=== PATIENT | female | born 1950 | race Native Hawaiian/Other Pacific Islander ===

== ENCOUNTER 2016-10-06 16:10 | Emergency (ER) | payer OTHER ==
--- NOTE | 2016-10-06 16:53 | ER Document Report ---
ED Medical Screen (RME) - General Chief Complaint: Passed Out Prior to Arrival Stated Complaint: FAINTED IN SHOWER Time Seen by Provider: 10/06/16 16:44 Notes: 66-year-old female patient who gets Procrit shots for thalassemia comes emergency room after a syncopal episode in the shower. She reported having a slow heart rate earlier today and thought she should take a shower before another bad storm came through. She reports a sharp pain in her chest before she fell. She has had the slow heart rates in the past but has never been this bad. She does not take any regular medications. I have greeted and performed a rapid initial assessment of this patient. A comprehensive ED assessment and evaluation of the patient, analysis of test results and completion of the medical decision making process will be conducted by additional ED providers. TRAVEL OUTSIDE OF THE [place] IN LAST 30 DAYS: No - Related Data Allergies/Adverse Reactions: No Known Allergies Allergy (Verified 10/06/16 16:45) Past Medical History Renal/ Medical History: Denies: Hx Peritoneal Dialysis Physical Exam - Vital signs Vitals: Temp Pulse Resp BP Pulse Ox 99.0 F 73 20 153/70 H 97 10/06/16 16:22 10/06/16 16:22 10/06/16 16:22 10/06/16 16:22 10/06/16 16:22 Course - Vital Signs Vital signs: Temp Pulse Resp BP Pulse Ox 99.0 F 73 20 153/70 H 97 10/06/16 16:22 10/06/16 16:22 10/06/16 16:22 10/06/16 16:22 10/06/16 16:22
--- NOTE | 2016-10-06 17:02 | EKG REPORT ---
SEVERITY:- NORMAL ECG - SINUS RHYTHM : Confirmed by: Kenyatta Crews MD 06-Oct-2016 17:01:51
--- NOTE | 2016-10-06 17:44 | RADIOLOGY REPORT (SQ) ---
EXAM DESCRIPTION: CHEST SINGLE VIEW COMPLETED DATE/TIME: 10/06/2016 5:24 pm REASON FOR STUDY: syncope COMPARISON: None. EXAM PARAMETERS: NUMBER OF VIEWS: One view. TECHNIQUE: Single frontal radiographic view of the chest acquired. RADIATION DOSE: NA LIMITATIONS: None. FINDINGS: LUNGS AND PLEURA: There is minimal linear atelectasis in the left base. Lung fernandez are o therwise clear. No effusions. MEDIASTINUM AND HILAR STRUCTURES: No masses. Contour normal. HEART AND VASCULAR STRUCTURES: Heart normal in size. Normal vasculature. BONES: No acute findings. HARDWARE: None in the chest. OTHER: No other significant finding. IMPRESSION: Minimal atelectasis in the left base. TECHNICAL DOCUMENTATION: JOB ID: [id number]
[2016-10-06 18:23] LABS: HEMATOCRIT 40.1 % (36.0-47.0); HEMOGLOBIN 11.2 g/dL (12.0-15.5); MEAN CORPUSCULAR HEMOGLOBIN 14.7 pg (27.0-33.4); MEAN CORPUSCULAR HGB CONC 27.9 g/dL (32.0-36.0); RED CELL DISTRIBUTION WIDTH 22.5 % (11.5-14.0); WHITE BLOOD COUNT 8.3 10^3/uL (4.0-10.5)
[2016-10-06 18:33] LABS: APPEARANCE,URINE CLEAR; BILIRUBIN,URINE NEGATIVE (NEGATIVE); GLUCOSE, URINE NEGATIVE (NEGATIVE); KETONES,URINE NEGATIVE (NEGATIVE); LEUKOCYTE ESTERASE,URINE NEGATIVE (NEGATIVE); NITRITE,URINE NEGATIVE (NEGATIVE); PROTEIN,URINE NEGATIVE (NEGATIVE); URINE SPECIFIC GRAVITY 1.004; UROBILINOGEN,URINE NEGATIVE mg/dL (<2.0)
[2016-10-06 18:36] LABS: HGB HCT DIFFERENCE -6.5; RED BLOOD COUNT 7.61 10^6/uL (3.72-5.28)
[2016-10-06 18:58] LABS: CREATINE KINASE MB 0.51 ng/mL (<4.55)
[2016-10-06 18:59] LABS: BASOPHILS % (MANUAL) 0 % (0-2); EOSINOPHILS % (MANUAL) 1 % (0-6); LYMPHOCYTES % (MANUAL) 55 % (13-45); TOTAL CELLS COUNTED 100; TROPONIN I < 0.012 ng/mL
[2016-10-06 19:03] LABS: ANISOCYTOSIS 3+; HYPOCHROMASIA 3+; MICROCYTOSIS 4+; OVALOCYTES 1+; POIKILOCYTOSIS 3+; POLYCHROMASIA SLIGHT; SCHISTOCYTES 2+; TARGET CELLS 2+; TEAR DROP CELLS 1+
[2016-10-06 19:04] LABS: MEAN CORPUSCULAR VOLUME 53 fl (80-97)
--- NOTE | 2016-10-06 19:54 | ER Document Report ---
ED General - General Chief Complaint: Passed Out Prior to Arrival Stated Complaint: FAINTED IN SHOWER Time Seen by Provider: 10/06/16 16:44 Notes: Patient is a 66-year-old female without significant past medical history who presents after an episode of syncope earlier today while in the shower. Patient states that while she was showering she became lightheaded, nauseated and then had an episode of near syncope. States that she had a slight shooting pain in her chest at that time but that has spontaneously resolved. She did not actually lose consciousness. She did not sustain any injury during this event as she was able to sit down in the shower. States she has had similar episodes in the past usually while showering. She has never had a prior evaluation for this complaint. At time of my assessment she denies any symptoms whatsoever. She denies any cardiac history, history of DVT or pulmonary embolus or history of aortic dissection or abdominal aortic aneurysm. Nothing improves her symptoms, she notes that they resolved on their own. Notes during the episode nothing seemed to worsen her symptoms. TRAVEL OUTSIDE OF THE [place] IN LAST 30 DAYS: No - Related Data Allergies/Adverse Reactions: No Known Allergies Allergy (Verified 10/06/16 16:45) Past Medical History - General Information source: Patient - Social History Smoking Status: Never Smoker Chew tobacco use (# tins/day): No Frequency of alcohol use: None Drug Abuse: None Lives with: Spouse/Significant other Family History: Reviewed & Not Pertinent Renal/ Medical History: Denies: Hx Peritoneal Dialysis - Immunizations Hx Diphtheria, Pertussis, Tetanus Vaccination: Yes Review of Systems - Review of Systems Notes: Constitutional: Negative for fever. HENT: Negative for sore throat. Eyes: Negative for visual changes. Cardiovascular: Negative for chest pain. Respiratory: Negative for shortness of breath. Gastrointestinal: Negative for abdominal pain, vomiting or diarrhea. Genitourinary: Negative for dysuria. Musculoskeletal: Negative for back pain. Skin: Negative for rash. Neurological: Negative for headaches, weakness or numbness. 10 point ROS negative except as marked above and in HPI. Physical Exam - Vital signs Vitals: Temp Pulse Resp BP Pulse Ox 99.0 F 73 20 153/70 H 97 10/06/16 16:22 10/06/16 16:22 10/06/16 16:22 10/06/16 16:22 10/06/16 16:22 Interpretation: Hypertensive Notes: PHYSICAL EXAMINATION: GENERAL: Well-appearing, well-nourished and in no acute distress. HEAD: Atraumatic, normocephalic. EYES: Pupils equal round and reactive to light, extraocular movements intact, sclera anicteric, conjunctiva are normal. ENT: nares patent, oropharynx clear without exudates. Moist mucous membranes. NECK: Normal range of motion, supple without lymphadenopathy LUNGS: Breath sounds clear to auscultation bilaterally and equal. No wheezes rales or rhonchi. HEART: Regular rate and rhythm without murmurs ABDOMEN: Soft, nontender, normoactive bowel sounds. No guarding, no rebound. No masses appreciated. EXTREMITIES: Normal range of motion, no pitting or edema. No cyanosis. NEUROLOGICAL: No focal neurological deficits. Moves all extremities spontaneously and on command. PSYCH: Normal mood, normal affect. SKIN: Warm, Dry, normal turgor, no rashes or lesions noted. Course - Re-evaluation Re-evalutation: 10/06/16 19:52 Presentation of syncope of unclear etiology. Patient normotensive, alert, without focal neurologic deficits at time of arrival. Denies syncope was during exertion. Patient asymptomatic at time of arrival. EKG is without evidence of HCOM, right heart strain, ST changes to suggest ischemia, prolong QTc, delta wave, epsilon wave, or Brugada syndrome. Patient denies any family history of sudden cardiac , personal history of of structural heart disease. On exam, no murmurs to suggest critical aortic stenosis as possible etiology. However, patient states that she did have a brief period of chest pain during this episode. Troponin is initially negative and will obtain a second 3 hours from the first. Also mentions that she feels that this pain was somewhat pleuritic in nature and prevents her from catching a good deep breath when she takes a deep inhalation. She has no history of DVT or pulmonary embolus, is not tachypneic, hypoxemic or tachycardic. I have a mild to moderate suspicion for PE and will proceed with d-dimer testing. If this is normal will not proceed with CTA. 10/06/16 22:30 Second troponin remains negative. D-dimer test was also negative. Patient remains asymptomatic, has tolerated oral intake without difficulty. No further episodes of syncope. No chest pain or shortness of breath. At this time will discharge with return precautions and follow-up recommendations. Verbal discharge instructions given a the bedside and opportunity for questions given. Medication warnings reviewed. Patient is in agreement with this plan and has verbalized understanding of return precautions and the need for primary care follow-up in the next 24-72 hours. - Vital Signs Vital signs: Temp Pulse Resp BP Pulse Ox 99.0 F 73 13 129/74 H 98 10/06/16 16:22 10/06/16 16:22 10/06/16 22:43 10/06/16 22:44 10/06/16 22:43 - Laboratory Result Diagrams: 10/06/16 18:00 10/06/16 20:07 Laboratory results interpreted by me: 10/06/16 10/06/16 18:00 20:07 RBC 7.61 H Hgb 11.2 L MCV 53 L MCH 14.7 L MCHC 27.9 L RDW 22.5 H Seg Neuts % (Manual) 37 L Lymphocytes % (Manual) 55 H Monocytes % (Manual) 1 L Abs Lymphs (Manual) 5.1 H Total Protein 8.3 H - Diagnostic Test Radiology reviewed: Image reviewed, Reports reviewed Radiology results interpreted by me: 10/07/16 03:40 Chest x-ray: No acute infiltrate or pneumothorax - EKG Interpretation by Me Additional EKG results interpreted by me: 10/07/16 03:41 Normal sinus rhythm. Rate 73. No ST elevations or depressions. QTC is 397. Discharge - Discharge Clinical Impression: Syncope Qualifiers: Syncope type: unspecified Qualified Code(s): R55 - Syncope and collapse Condition: Good Disposition: HOME, SELF-CARE Additional Instructions: You were seen today after an episode of passing out. Your EKG here is normal. At this time, we do not feel that your episode of passing out was from any life- threatening cause. Please drink plenty of fluids over the next several days. Return to emergency department if you have any further episodes of syncope, headache, weakness, numbness, chest pain, or shortness of breath. Please follow up closely with your primary care physician.
[2016-10-06 20:40] LABS: ALANINE AMINOTRANSFERASE 25 U/L (9-52); ALKALINE PHOSPHATASE 73 U/L (38-126); ANION GAP 14 (5-19); ASPARTATE AMINO TRANSFERASE 20 U/L (14-36); BILIRUBIN,DIRECT 0.2 mg/dL (0.0-0.4); BILIRUBIN,TOTAL 1.2 mg/dL (0.2-1.3); BLOOD UREA NITROGEN 12 mg/dL (7-20); CALCIUM 9.4 mg/dL (8.4-10.2); CARBON DIOXIDE 23 mmol/L (22-30); CHLORIDE 105 mmol/L (98-107); CREATINE KINASE 63 U/L (30-135); GLUCOSE 102 mg/dL (75-110); MAGNESIUM 2.2 mg/dL (1.6-2.3); SODIUM 141.7 mmol/L (137-145); TOTAL PROTEIN 8.3 g/dL (6.3-8.2)
[2016-10-06 22:50] VITALS: BP 129/74
[2016-10-07 15:42] LABS: PATH REVIEW PATHOLOGIST REVIEWED
== END 2016-10-06 22:50 | disposition home or self-care (01) ==
LOC: ER 16:10
DX: R55 Syncope and collapse (principal); R07.9 Chest pain, unspecified; R11.0 Nausea
CPT/HCPCS: 36415; 71010; 80053; 81001; 82550; 82553; 83735; 84484; 85025; 85379; 93005; 93010; 99284